=== PATIENT | female | born 1955 | race Caucasian/White ===

== ENCOUNTER 2019-06-12 11:51 | Day surgery (SDC) | payer OTHER ==
[~2019-06-12] VITALS: Ht 160 cm; Wt 89.5 kg
[2019-06-12] MEDS ORDERED: Lotrel 10-20 M1 EACH (12:26)
[2019-06-12] MEDS ORDERED: OMEP20ER PO (12:27)
[2019-06-12] MEDS ORDERED: CONEST.9 PO (12:27)
[2019-06-12] MEDS ORDERED: MELO7.5 PO (12:27)
[2019-06-12] MEDS ORDERED: Dyazide 37.5-21 EACH PO (12:28)
[2019-06-12] MEDS ORDERED: Cholestyramine R5 GM (12:28)
[2019-06-12] MEDS ORDERED: VITAMIN B12-FO1 EACH PO (12:29)
[2019-06-12] MEDS ORDERED: VITAMIN D3400 UNIT PO (12:29)
[2019-06-12] MEDS ORDERED: GLUC500 PO (12:29)
[2019-06-12] MEDS ORDERED: XARELTO15 MG PO (12:30)
[2019-06-12] MEDS ORDERED: FLAX OIL1000 MG PO (12:30)
[2019-06-12] MEDS ORDERED: Zantac150 MG PO (12:31)
== END 2019-06-12 13:45 | disposition home or self-care (01) ==
LOC: ORSCSDS 11:51
PROVIDERS: Surgery
PROC: 0DJD8ZZ Inspection of Lower Intestinal Tract, Via Natural or Artificial Opening Endoscopic (ICD-10-PCS; principal; 2019-06-12 13:00)
DX: Z12.11 Encounter for screening for malignant neoplasm of colon (principal); Z83.71 Family history of colonic polyps; K57.30 Diverticulosis of large intestine without perforation or abscess without bleeding; I10 Essential (primary) hypertension; Z79.01 Long term (current) use of anticoagulants; Z79.899 Other long term (current) drug therapy
CPT/HCPCS: J2704; J7120